=== PATIENT | female | born 1975 | race Caucasian/White ===

== ENCOUNTER 2020-04-08 16:50 | Inpatient (IN) ==
[2020-04-08] MEDS ORDERED: HYDROmorphone 0.5 MG/0.5 ML SYRINGE IV PRN (17:07)
[2020-04-08] MEDS ORDERED: LACTATED RINGERS 1,000 ML IV ONE (17:07)
[2020-04-08] MEDS ORDERED: ONDANSETRON 4 MG/2 ML VIAL IV ONE (17:07)
--- NOTE | 2020-04-08 17:21 | Emergency Department Note ---
Female Urogenital HPI General Chief complaint: Flank Pain Stated complaint: flank pain, n/v Time Seen by Provider: 04/08/20 17:04 Source: patient and RN notes reviewed Mode of arrival: wheelchair Limitations: no limitations History of Present Illness HPI Narrative: Narrative: This patient comes in with right flank pain abdominal pain fever nausea and vomiting. She had a CT scan yesterday that showed for kidney stones on the right side with severe hydronephrosis. She did see Dr. Wesley the urologist on . Sounds like she has had some problems with kidney stones cystocele rectocele, stress incontinence and urinary tract infections. She says she is taken antibiotics twice in the last couple of months. Onset (ago): day(s) Radiation: R flank Severity: moderate Quality: sharp Duration: constant Improves with: none Worsens with: none Associated symptoms: Reports nausea/vomiting and fever/chills Related Data Home Medications Medication Instructions Recorded Confirmed IUD INTRAUTERINE 03/12/20 04/05/20 Allergies Allergy/AdvReac Type Severity Reaction Status Date / Time Iodinated Diagnostic Agents Allergy Unknown Vomiting Uncoded 04/05/20 13:17 Review of Systems ROS ROS Narrative: Narrative: All systems ED: reviewed and negative except as stated. Constitutional: Reports fever and chills Cardiovascular: Denies chest pain Respiratory: Denies shortness of breath and cough Gastrointestinal: Reports abdominal pain, nausea and vomiting; Denies diarrhea PFSH Narrative Patient History Narrative: Narrative: Medical/Surgical/Family History All Active Problems (Updated 04/08/20 @ 22:23 by Yusuf Wesley MD) Sepsis (Acute) Ureteral stone with hydronephrosis (Acute) Urinary tract infection (Acute) Urge incontinence (Acute) Stress incontinence (Acute) Rectocele (Acute) Cystocele (Acute) Ureteral stone (Acute) Status post laser lithotripsy of ureteral calculus (Chronic 04/05/19) History of surgery (Chronic 04/12/19) History of surgery (Chronic ~05/2002) History of ectopic (Chronic ~05/2002) Heart murmur (Chronic) Prolapse of vaginal wall (Chronic) Mild depression (Chronic) 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) Cystitis, acute (Chronic) Lumbago (Chronic) Morbid obesity due to excess calories (Chronic) Kidney stone (Chronic) History of kidney stones (Acute) Urinary tract infection (Acute) Urinary frequency (Acute) Medical History 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) Cystitis, acute (Chronic) Exudative pharyngitis (Chronic) Heart murmur (Chronic) History of ectopic (Chronic ~05/2002) History of kidney stones (Acute) Kidney stone (Chronic) Lumbago (Chronic) Mild depression (Chronic) Morbid obesity due to excess calories (Chronic) Prolapse of vaginal wall (Chronic) Urinary tract infection (Acute) Surgical History History of surgery (Chronic ~05/2002) Ectopic History of surgery (Chronic 04/12/19) Left-sided percutaneous nephrolithotomy Status post laser lithotripsy of ureteral calculus (Chronic 04/05/19) Family History Mother Heart disease Social History Smoking Status: Never smoker Alcohol Intake Frequency: holiday/special occasion only Substance Use: does not use Exam Narrative Narrative: Narrative: General Limitations: no limitations Head Head: atraumatic, normocephalic and normal inspection Eye Eye: Present normal appearance and EOMI; Absent scleral icterus and conjunctival injection ENT ENT: Present normal exam, normal oropharynx and mucous membranes moist Neck Neck: Present normal inspection and full ROM Chest Chest: Present normal inspection and symmetric chest wall rise Respiratory Respiratory: Present normal lung sounds bilaterally; Absent respiratory distress, rales/crackles and wheezes Cardiovascular Cardiovascular: Present regular rate, normal rhythm and normal heart sounds Adbominal Abdominal: Present soft and tenderness; Absent distention, guarding, rebound and rigidity Expanded Abdominal Abdominal Tenderness: Present RUQ and RLQ Back Back: Present CVA tenderness (R) Neurological Neurological: Present alert Psychiatric Psychiatric: Present normal affect Skin Skin: Present warm and dry; Absent diaphoresis Course Vital Signs Vital signs: Vital Signs Temperature 102.3 F H 04/08/20 16:50 Pulse Rate 96 H 04/08/20 16:50 Respiratory Rate 22 04/08/20 16:50 Blood Pressure 140/87 04/08/20 16:50 Pulse Oximetry (%) 97 04/08/20 16:50 Temperature 98.5 F 04/09/20 04:01 Pulse Rate 60 04/09/20 05:01 Respiratory Rate 20 04/09/20 05:01 Blood Pressure 113/63 04/09/20 05:01 Pulse Oximetry (%) 96 04/09/20 05:01 MDM MDM Narrative Medical decision making narrative: Narrative: Patient was cultured and treated with Rocephin and ampicillin. I discussed case with Dr. Wesley and she will take the patient to the operating room for a stent. Medical Records Medical records reviewed: Yes I reviewed the patient's medical records. Medical records narrative: CT scan done yesterday does show for distal ureteral stones on the right the largest 6 mm. Lab Data Lab results reviewed: Yes I reviewed the patient's lab results. Lab results narrative: Patient appears to have a UTI and her white count was 1 4.2 Result diagrams: 04/09/20 04:28 04/09/20 04:28 Labs: Lab Results 04/08/20 04/08/20 04/08/20 Range/Units 17:04 17:04 17:04 WBC 14.2 H (4.50-11.00) K/mcL RBC 4.45 (3.59-5.38) M/mcL Hgb 13.7 (11.2-15.7) g/dL Hct 40.3 (34.1-44.9) % MCV 90.6 (80.0-100.0) fL MCH 30.8 (26.0-34.0) pg MCHC 34.0 (31.0-36.0) g/dL RDW 12.8 (11.5-14.5) % Plt Count 153 (140-440) K/mcL MPV 11.4 H (7.4-10.4) fL Gran % 91.2 H (38.0-78.0) % Lymph % (Auto) 5.1 L (15.5-49.0) % [place] % (Auto) 3.6 (1.0-12.0) % Eos % (Auto) 0 (0.0-7.0) % Baso % (Auto) 0.1 (0.0-2.0) % Gran # 12.93 H (1.80-8.00) K/mcL Lymph # (Auto) 0.73 L (1.50-4.80) K/mcL [place] # (Auto) 0.51 (0.10-0.90) K/mcL Eos # (Auto) 0 (0.00-0.70) K/mcL Baso # (Auto) 0.01 (0.00-0.30) K/mcL VBG Lactic Acid 1.7 (0.5-2.0) mmol/L Sodium 130 L (133-145) mmol/L Potassium 4.0 (3.3-5.1) mmol/L Chloride 98 (96-108) mmol/L Carbon Dioxide 20 L (22-30) mmol/L Anion Gap 12.0 (8-16) BUN 20 (6-20) mg/dl Creatinine 1.4 H (0.6-1.1) mg/dl GFR Calculation 45 Glucose 137 H (70-105) mg/dL Calcium 9.2 (8.6-10.4) mg/dl Total Bilirubin 0.6 (0.0-1.0) mg/dL AST 15 (0-37) U/l ALT 14 (0-40) U/l Alkaline Phosphatase 61 (39-117) U/L Total Protein 6.7 (5.9-8.4) gm/dL Albumin 3.7 (3.2-5.2) gm/dL Globulin 3.0 (2.2-3.7) gm/dL Albumin/Globulin Ratio 1.2 (1.0-2.3) Urine Color Urine Appearance Urine pH (5.0-9.0) Ur Specific [place] (1.000-1.035) Urine Protein (NEG) mg/dL Urine Glucose (UA) (NEG) mg/dL Urine Ketones (NEG) mg/dL Urine Occult Blood (<0.03) mg/dL Urine Nitrate (NEG) Urine Bilirubin (NEG) mg/dL Urine Urobilinogen (NEG) mg/dL Ur Leukocyte Esterase (NEG) /uL Urine RBC (0-1) /hpf Urine WBC (0-4) /hpf Ur Squamous Epith Cells (0-4) /hpf Urine Bacteria (0) /hpf Urine Mucus (0) /hpf Ur Culture Indicated? SARS-CoV-2 (PCR) (NEGATIVE) 04/08/20 04/08/20 Range/Units 17:20 19:31 WBC (4.50-11.00) K/mcL RBC (3.59-5.38) M/mcL Hgb (11.2-15.7) g/dL Hct (34.1-44.9) % MCV (80.0-100.0) fL MCH (26.0-34.0) pg MCHC (31.0-36.0) g/dL RDW (11.5-14.5) % Plt Count (140-440) K/mcL MPV (7.4-10.4) fL Gran % (38.0-78.0) % Lymph % (Auto) (15.5-49.0) % [place] % (Auto) (1.0-12.0) % Eos % (Auto) (0.0-7.0) % Baso % (Auto) (0.0-2.0) % Gran # (1.80-8.00) K/mcL Lymph # (Auto) (1.50-4.80) K/mcL [place] # (Auto) (0.10-0.90) K/mcL Eos # (Auto) (0.00-0.70) K/mcL Baso # (Auto) (0.00-0.30) K/mcL VBG Lactic Acid (0.5-2.0) mmol/L Sodium (133-145) mmol/L Potassium (3.3-5.1) mmol/L Chloride (96-108) mmol/L Carbon Dioxide (22-30) mmol/L Anion Gap (8-16) BUN (6-20) mg/dl Creatinine (0.6-1.1) mg/dl GFR Calculation Glucose (70-105) mg/dL Calcium (8.6-10.4) mg/dl Total Bilirubin (0.0-1.0) mg/dL AST (0-37) U/l ALT (0-40) U/l Alkaline Phosphatase (39-117) U/L Total Protein (5.9-8.4) gm/dL Albumin (3.2-5.2) gm/dL Globulin (2.2-3.7) gm/dL Albumin/Globulin Ratio (1.0-2.3) Urine Color Yellow Urine Appearance Clear Urine pH 5.0 (5.0-9.0) Ur Specific [place] 1.026 (1.000-1.035) Urine Protein 30 A (NEG) mg/dL Urine Glucose (UA) Negative (NEG) mg/dL Urine Ketones Neg (NEG) mg/dL Urine Occult Blood 0.03 A (<0.03) mg/dL Urine Nitrate Neg (NEG) Urine Bilirubin Neg (NEG) mg/dL Urine Urobilinogen 2.0 A (NEG) mg/dL Ur Leukocyte Esterase 75 A (NEG) /uL Urine RBC 6 H (0-1) /hpf Urine WBC 43 H (0-4) /hpf Ur Squamous Epith Cells 6 H (0-4) /hpf Urine Bacteria 0 (0) /hpf Urine Mucus Few (0) /hpf Ur Culture Indicated? No SARS-CoV-2 (PCR) Covid-19 negative (NEGATIVE) Discharge Plan Patient/Caregiver Discharge Instructions Pt seen by [facility]ENER TENDER/PA only: No Clinical Impression: Calculus in urethra Urinary tract infection Qualifiers: Urinary tract infection type: acute pyelonephritis Qualified Code(s): N10 - Acute pyelonephritis Patient Disposition: Xfer As Inpt ([facility]) Discharge Date/Time: 04/08/20 19:23
[2020-04-08] MEDS ORDERED: cefTRIAXone 1 GM VIAL IV ONE ×2 (17:23→22:07)
[2020-04-08 17:45] LABS: Basophils # (Auto) 0.01 K/mcL (0.00-0.30); Basophils % (Auto) 0.1 % (0.0-2.0); Eosinophils # (Auto) 0 K/mcL (0.00-0.70); Eosinophils % (Auto) 0 % (0.0-7.0); Granulocytes % (Auto) 91.2 % (38.0-78.0); Hematocrit 40.3 % (34.1-44.9); Hemoglobin 13.7 g/dL (11.2-15.7); Lymphocytes # (Auto) 0.73 K/mcL (1.50-4.80); Lymphocytes % (Auto) 5.1 % (15.5-49.0); Mean Cell Volume 90.6 fL (80.0-100.0); Mean Platelet Volume 11.4 fL (7.4-10.4); Monocytes # (Auto) 0.51 K/mcL (0.10-0.90); Monocytes % (Auto) 3.6 % (1.0-12.0); Platelet Count 153 K/mcL (140-440); RBC 4.45 M/mcL (3.59-5.38); Red Cell Distribution Width 12.8 % (11.5-14.5); WBC 14.2 K/mcL (4.50-11.00)
[2020-04-08 17:45] LABS: Appearance,Urine CLEAR; Bacteria,Urine 0 /hpf (0); Bilirubin,Urine NEG (NEG); Color,Urine YELLOW; Culture Indicated,Urine NO; Glucose,Urine (UA) NEGATIVE (NEG); Ketones,Urine NEG (NEG); Leukocyte Esterase,Urine 75 /uL (NEG); Mucus,Urine FEW /hpf (0); Nitrate,Urine NEG (NEG); Protein,Urine 30 mg/dL (NEG); Specific Gravity,Urine 1.026 (1.000-1.035); Urine Blood 0.03 mg/dL (<0.03); Urine RBC 6 /hpf (0-1); Urine Squamous Epithelial Cell 6 /hpf (0-4); Urine WBC 43 /hpf (0-4)
[2020-04-08 18:05] LABS: ALT/SGPT 14 U/l (0-40); AST/SGOT 15 U/l (0-37); Albumin 3.7 gm/dL (3.2-5.2); Albumin/Globulin Ratio 1.2 (1.0-2.3); Alkaline Phosphatase 61 U/L (39-117); Bilirubin,Total 0.6 mg/dL (0.0-1.0); Blood Urea Nitrogen 20 mg/dl (6-20); Calcium 9.2 mg/dl (8.6-10.4); Carbon Dioxide 20 mmol/L (22-30); Chloride 98 mmol/L (96-108); Glomerular Filtration Rate 45; Glucose 137 mg/dL (70-105)
[2020-04-08] MEDS ORDERED: AMPICILLIN SODIUM 1 GM in 0.9 % SODIUM CHLORIDE 50 ML IV ONE (18:33)
--- NOTE | 2020-04-08 18:53 | XRay Report ---
CLINICAL INFORMATION: Preop COMPARISON: None. TECHNIQUE: Portable FINDINGS: The heart size, mediastinum and pulmonary vessels are unremarkable. The lungs are clear. There are no effusions. The bones and soft tissues are within normal limits. IMPRESSION: Normal chest. Interpreted and Authenticated by: Heber Plummer 04/08/20
[2020-04-08] MEDS ORDERED: VANCOMYCIN 1,000 MG in 0.9 % SODIUM CHLORIDE 250 ML IV ONE ×2 (19:40→19:41)
--- NOTE | 2020-04-08 19:50 | Internal Medicine Consult Note ---
HPI Data of Consult Primary Care Provider: Tisha Ralph Consult Narrative History of present illness: 45 y.o. female with longstanding right sided ureteral stone who established care this week. previous CT scan was form early this year and she was never treated. she has mild prolapse and thought her symptoms were from such, not her distal stone. Repeat Ct scan was ordered and plan was for surgery next week. she got her CT scan yesterday and started to have increased pain, malaise, fevers today that have progressively worsened until she was seen in the ER> CT Stone yesterday: There are four stones in the distal right ureter. The largest, most distal stone near the UVJ, is 6 mm in short axis. The obstructing stones have resulted in severe right hydroureter/hydronephrosis. Both kidneys demonstrate extensive nephrocalcinosis. There are also a few nonobstructing stones in the calyces of both kidneys: 7 mm inferior calyx left kidney, 5 mm mid calyx left kidney, 3 mm posterior mid calyx left kidney, 3 mm posterior mid calyx left kidney and two in the superior calyx left kidney both less than 2 mm. In the right upper collecting system, 2 mm inferior calyx, 2 mm mid calyx and 2 mm the posterior calyces. In the ER she was found to be febrile, have an elevated WBC and lactic acid meeting sepsis criteria. EMERGENT intervention by [id number] for right ureteral stent, possible ureteroscopy and laser lithotripsy with possible right percutaenous nephrostomy tube placement (if unable to gain access with a ureteral stent and she would need to be transferred to a facility with interventional radiology). No dysuria, no hematuria, she feels febrile and has had multiple episodes emesis. Right flank pain radiating to groin that is worse than this morning. cc:: CC: Yusuf Wesley MD Constitutional Constitutional: Present chills, excessive sweating, fatigue, fever(s), malaise and weakness EENT Eyes: Absent blurry vision, decreased night vision and pain Nose, mouth and throat: Absent change in voice, dysphagia and lip swelling Cardiovascular Cardiovascular: Present diaphoresis; Absent chest pain at rest and chest pain with activity Respiratory Respiratory: Absent cough, dyspnea on exertion, wheezing and stridor Gastrointestinal Gastrointestinal: Present as per HPI, nausea and vomiting Genitourinary Genitourinary: Present as per HPI Musculoskeletal Musculoskeletal: Absent joint swelling, muscle weakness and myalgias Integumentary Integumentary: Absent rash, sores and unusual bruising Neurological Neurological: Present weakness; Absent confusion, dizziness and tingling Psychiatric Psychiatric: Present change in appetite; Absent anxiety, irritability and memory loss Endocrine Endocrine: Absent polydipsia, polyphagia and polyuria Hematologic/Lymphatic Hematologic/Lymphatic: Absent easy bleeding, easy bruising and lymphadenopathy Allergic/Immunologic Allergic/Immunologic: Absent tongue swelling, uticaria and lip swelling PFSH PFSH All Active Problems (Updated 04/08/20 @ 20:02 by Yusuf Wesley MD) Sepsis (Acute) Ureteral stone with hydronephrosis (Acute) Urinary tract infection (Acute) Urge incontinence (Acute) Stress incontinence (Acute) Rectocele (Acute) Cystocele (Acute) Ureteral stone (Acute) Status post laser lithotripsy of ureteral calculus (Chronic 04/05/19) History of surgery (Chronic 04/12/19) History of surgery (Chronic ~05/2002) History of ectopic (Chronic ~05/2002) Heart murmur (Chronic) Prolapse of vaginal wall (Chronic) Mild depression (Chronic) 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) Cystitis, acute (Chronic) Lumbago (Chronic) Morbid obesity due to excess calories (Chronic) Kidney stone (Chronic) History of kidney stones (Acute) Urinary tract infection (Acute) Urinary frequency (Acute) Medical History 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) Cystitis, acute (Chronic) Exudative pharyngitis (Chronic) Heart murmur (Chronic) History of ectopic (Chronic ~05/2002) History of kidney stones (Acute) Kidney stone (Chronic) Lumbago (Chronic) Mild depression (Chronic) Morbid obesity due to excess calories (Chronic) Prolapse of vaginal wall (Chronic) Urinary tract infection (Acute) Surgical History History of surgery (Chronic ~05/2002) Ectopic History of surgery (Chronic 04/12/19) Left-sided percutaneous nephrolithotomy Status post laser lithotripsy of ureteral calculus (Chronic 04/05/19) Family History Mother Heart disease Social History marital status: single occupational status: employed physical activity: none smoking status: Never smoker alcohol intake frequency: holiday/special occasion only substance use type: does not use MEDS/ALLERGIES Home Medications and Allergies Home Medications Medication Instructions Recorded Confirmed Type IUD INTRAUTERINE 03/12/20 04/05/20 History Allergies Allergy/AdvReac Type Severity Reaction Status Date / Time Iodinated Diagnostic Agents Allergy Unknown Vomiting Uncoded 04/05/20 13:17 EXAM Constitutional Vitals: Temp Pulse Resp BP Pulse Ox 100.3 F H 96 H 22 140/87 97 04/08/20 19:25 04/08/20 16:50 04/08/20 16:50 04/08/20 16:50 04/08/20 16:50 General appearance: average body habitus, cooperative and severe distress Exam: diaphoretic Head Head exam: Present atraumatic, normal inspection and normocephalic Eye Eye exam: Present EOMI; Absent conjunctival injection, periorbital swelling and scleral icterus ENT ENT exam: Present mucous membranes dry Respiratory Respiratory exam: Present normal respiratory exam; Absent accessory muscle use, stridor and wheezes Cardiovascular Cardiovascular exam: Present tachycardia; Absent bradycardia and irregular rhythm GI/Abdominal GI/Abdominal exam: Present soft; Absent firm, rebound and tenderness Additional comments: right CVA tenderness Additional comments: right CVA tenderness Neurological Exam Neurological exam: Present alert and oriented X3 Psychiatric Psychiatric exam: Present normal affect; Absent agitated and anxious Skin Skin exam: Present diaphoretic and warm; Absent rash DATA Data Completed and Pending Labs: Labs from last 24 hours 04/08/20 04/08/20 04/08/20 19:31 17:20 17:04 WBC RBC Hgb Hct MCV MCH MCHC RDW Plt Count MPV Gran % Lymph % (Auto) [place] % (Auto) Eos % (Auto) Baso % (Auto) Gran # Lymph # (Auto) [place] # (Auto) Eos # (Auto) Baso # (Auto) VBG Lactic Acid 1.7 Sodium Potassium Chloride Carbon Dioxide Anion Gap BUN Creatinine GFR Calculation Glucose Calcium Total Bilirubin AST ALT Alkaline Phosphatase Total Protein Albumin Globulin Albumin/Globulin Ratio Urine Color Yellow Urine Appearance Clear Urine pH 5.0 Ur Specific [place] 1.026 Urine Protein 30 A Urine Glucose (UA) Negative Urine Ketones Neg Urine Occult Blood 0.03 A Urine Nitrate Neg Urine Bilirubin Neg Urine Urobilinogen 2.0 A Ur Leukocyte Esterase 75 A Urine RBC 6 H Urine WBC 43 H Ur Squamous Epith Cells 6 H Urine Bacteria 0 Urine Mucus Few Ur Culture Indicated? No SARS-CoV-2 (PCR) Pending 04/08/20 04/08/20 17:04 17:04 WBC 14.2 H RBC 4.45 Hgb 13.7 Hct 40.3 MCV 90.6 MCH 30.8 MCHC 34.0 RDW 12.8 Plt Count 153 MPV 11.4 H Gran % 91.2 H Lymph % (Auto) 5.1 L [place] % (Auto) 3.6 Eos % (Auto) 0 Baso % (Auto) 0.1 Gran # 12.93 H Lymph # (Auto) 0.73 L [place] # (Auto) 0.51 Eos # (Auto) 0 Baso # (Auto) 0.01 VBG Lactic Acid Sodium 130 L Potassium 4.0 Chloride 98 Carbon Dioxide 20 L Anion Gap 12.0 BUN 20 Creatinine 1.4 H GFR Calculation 45 Glucose 137 H Calcium 9.2 Total Bilirubin 0.6 AST 15 ALT 14 Alkaline Phosphatase 61 Total Protein 6.7 Albumin 3.7 Globulin 3.0 Albumin/Globulin Ratio 1.2 Urine Color Urine Appearance Urine pH Ur Specific [place] Urine Protein Urine Glucose (UA) Urine Ketones Urine Occult Blood Urine Nitrate Urine Bilirubin Urine Urobilinogen Ur Leukocyte Esterase Urine RBC Urine WBC Ur Squamous Epith Cells Urine Bacteria Urine Mucus Ur Culture Indicated? SARS-CoV-2 (PCR) A/P Assessment and plan (1) Ureteral stone with hydronephrosis: Status: Acute Comment: -she has FOUR stones in her distal right ureter, hydronephrosis and signs of sepsis \ -emergent intervention with right ureteral stent and possible ureteroscopy and laser lithotripsy if needed to gain access -if we are unable to place a retrograde ureteral stent, she will need emergent transfer to a facility with interventional radiology for a right nephrostomy tube -definative management of her stone burden will be undertaken after her infection has cleared -risks, benefits, severity of her infection and alternatives gone over with her in depth and informed consent obtained (2) Sepsis: Status: Acute Comment: -she has FOUR stones in her distal right ureter, hydronephrosis and signs of sepsis \ -emergent intervention with right ureteral stent and possible ureteroscopy and laser lithotripsy if needed to gain access -if we are unable to place a retrograde ureteral stent, she will need emergent transfer to a facility with interventional radiology for a right nephrostomy tube -broad spectrum antibiotics given and resusitation by ER and anesthesia -plan to admit to ICU after and hospitalist service Time Spent With Patient Time: Total time spent is greater than 50% in coordination of care (as documented) at patient's floor/unit and/or counseling patient:
[2020-04-08] MEDS ORDERED: MIDAZOLAM 2 MG/2 ML VIAL ONE (19:53)
[2020-04-08] MEDS ORDERED: GLYCOPYRROLATE 0.2 MG/ML VIAL IV ONE (19:53)
[2020-04-08] MEDS ORDERED: KETAMINE 100 MG/ML ML ONE (19:53)
[2020-04-08] MEDS ORDERED: LIDOCAINE HCL/PF 100 MG/5 ML SYRINGE IV ONE (19:53)
[2020-04-08] MEDS ORDERED: ONDANSETRON 4 MG/2 ML VIAL ONE (19:53)
[2020-04-08] MEDS ORDERED: PROPOFOL 200 MG/20 ML VIAL IV ONE (19:53)
[2020-04-08] MEDS ORDERED: DEXAMETHASONE 10 MG/ML VIAL ONE (19:53)
[2020-04-08] MEDS ORDERED: fentaNYL 100 MCG/2 ML VIAL IV ONE (19:53)
[2020-04-08] MEDS ORDERED: ONDANSETRON 4 MG/2 ML VIAL IV PRN ×2 (20:21→21:49)
[2020-04-08] MEDS ORDERED: IPRATROPIUM/ALBUTEROL 3 ML AMPUL.NEB NEB PRN (20:21)
[2020-04-08] MEDS ORDERED: ACETAMINOPHEN 1,000 MG/100 ML BOTTLE IV ONE ×2 (20:21→20:52)
[2020-04-08] MEDS ORDERED: MEPERIDINE 25 MG/ML SYRINGE IV PRN (20:21)
[2020-04-08] MEDS ORDERED: BENZOCAINE/MENTHOL 1 LOZENGE PO PRN (20:21)
[2020-04-08] MEDS ORDERED: METHOCARBAMOL 1,000 MG/10 ML VIAL IV PRN (20:21)
[2020-04-08] MEDS ORDERED: fentaNYL 100 MCG/2 ML VIAL IV PRN (20:21)
[2020-04-08] MEDS ORDERED: KETOROLAC 30 MG/ML VIAL IV PRN (20:21)
[2020-04-08] MEDS ORDERED: LACTATED RINGERS 1,000 ML IV SCH (20:30)
--- NOTE | 2020-04-08 20:41 | Internal Med History&Physical ---
HPI History of Present Illness Patient information: Note initiated : 04/08/20 at 8:40 pm Service Date, if different from initiated Date: [] Patient: Sheila Ohara a 45 y/o F admitted on for flank pain, n/v. Chief Complaint: [] History of present illness: Ms. Ohara is a 45 year old F with a history of nephrolithiasis following up as outpatient with urology. Patient started experiencing increasing abdominal discomfort along with fever, nausea and hematuria and subsequently was evaluated in the ER. Patient was taken to surgery for hydronephrosis and obstructive uropathy along with placement of right ureteral stent. Hospital service was consulted for admission in light of sepsis/obstructive uropathy and VICTOR HUGO At the time of my evaluation patient is immediately postop. She is doing well. Discomfort improved. Resting comfortably. Patient denies headache, photophobia, myalgias but endorses to chills and fever. She also endorses abdominal discomfort along with vaginal spasm likely associated with ureteric colic. Review of systems 10 point review system was performed and is negative except for ones cussed above PFSH PFSH All Active Problems (Updated 04/08/20 @ 22:23 by Yusuf Wesley MD) Sepsis (Acute) Ureteral stone with hydronephrosis (Acute) Urinary tract infection (Acute) Urge incontinence (Acute) Stress incontinence (Acute) Rectocele (Acute) Cystocele (Acute) Ureteral stone (Acute) Status post laser lithotripsy of ureteral calculus (Chronic 04/05/19) History of surgery (Chronic 04/12/19) History of surgery (Chronic ~05/2002) History of ectopic (Chronic ~05/2002) Heart murmur (Chronic) Prolapse of vaginal wall (Chronic) Mild depression (Chronic) 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) Cystitis, acute (Chronic) Lumbago (Chronic) Morbid obesity due to excess calories (Chronic) Kidney stone (Chronic) History of kidney stones (Acute) Urinary tract infection (Acute) Urinary frequency (Acute) Medical History 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) Cystitis, acute (Chronic) Exudative pharyngitis (Chronic) Heart murmur (Chronic) History of ectopic (Chronic ~05/2002) History of kidney stones (Acute) Kidney stone (Chronic) Lumbago (Chronic) Mild depression (Chronic) Morbid obesity due to excess calories (Chronic) Prolapse of vaginal wall (Chronic) Urinary tract infection (Acute) Surgical History History of surgery (Chronic ~05/2002) Ectopic History of surgery (Chronic 04/12/19) Left-sided percutaneous nephrolithotomy Status post laser lithotripsy of ureteral calculus (Chronic 04/05/19) Family History Mother Heart disease Social History marital status: single occupational status: employed physical activity: none smoking status: Never smoker alcohol intake frequency: holiday/special occasion only substance use type: does not use MEDS/ALLERGIES Home Medications and Allergies Home Medications Medication Instructions Recorded Confirmed Type IUD INTRAUTERINE 03/12/20 04/05/20 History Allergies Allergy/AdvReac Type Severity Reaction Status Date / Time Iodinated Diagnostic Agents Allergy Unknown Vomiting Uncoded 04/05/20 13:17 EXAM Constitutional Vitals: Temp Pulse Resp BP Pulse Ox 100.0 F H 104 H 22 115/91 100 04/08/20 20:30 04/08/20 20:35 04/08/20 20:35 04/08/20 20:35 04/08/20 20:35 Anxious and in discomfort Head normocephalic Oral cavity moist No ear nose discharge Eye movement symmetrical Neck supple no lymphadenopathy S1-S2 tachycardia Nonlabored breathing Nondistended nontender abdomen Lower extremity no cyanosis clubbing or joint swelling Skin no suspicious lesion Psych anxious but alert cooperative Neuro normal higher function DATA Data Completed and Pending Labs: Labs from last 24 hours 04/08/20 04/08/20 04/08/20 19:31 17:20 17:04 WBC RBC Hgb Hct MCV MCH MCHC RDW Plt Count MPV Gran % Lymph % (Auto) [place] % (Auto) Eos % (Auto) Baso % (Auto) Gran # Lymph # (Auto) [place] # (Auto) Eos # (Auto) Baso # (Auto) VBG Lactic Acid 1.7 Sodium Potassium Chloride Carbon Dioxide Anion Gap BUN Creatinine GFR Calculation Glucose Calcium Total Bilirubin AST ALT Alkaline Phosphatase Total Protein Albumin Globulin Albumin/Globulin Ratio Urine Color Yellow Urine Appearance Clear Urine pH 5.0 Ur Specific [place] 1.026 Urine Protein 30 A Urine Glucose (UA) Negative Urine Ketones Neg Urine Occult Blood 0.03 A Urine Nitrate Neg Urine Bilirubin Neg Urine Urobilinogen 2.0 A Ur Leukocyte Esterase 75 A Urine RBC 6 H Urine WBC 43 H Ur Squamous Epith Cells 6 H Urine Bacteria 0 Urine Mucus Few Ur Culture Indicated? No SARS-CoV-2 (PCR) Pending 04/08/20 04/08/20 17:04 17:04 WBC 14.2 H RBC 4.45 Hgb 13.7 Hct 40.3 MCV 90.6 MCH 30.8 MCHC 34.0 RDW 12.8 Plt Count 153 MPV 11.4 H Gran % 91.2 H Lymph % (Auto) 5.1 L [place] % (Auto) 3.6 Eos % (Auto) 0 Baso % (Auto) 0.1 Gran # 12.93 H Lymph # (Auto) 0.73 L [place] # (Auto) 0.51 Eos # (Auto) 0 Baso # (Auto) 0.01 VBG Lactic Acid Sodium 130 L Potassium 4.0 Chloride 98 Carbon Dioxide 20 L Anion Gap 12.0 BUN 20 Creatinine 1.4 H GFR Calculation 45 Glucose 137 H Calcium 9.2 Total Bilirubin 0.6 AST 15 ALT 14 Alkaline Phosphatase 61 Total Protein 6.7 Albumin 3.7 Globulin 3.0 Albumin/Globulin Ratio 1.2 Urine Color Urine Appearance Urine pH Ur Specific [place] Urine Protein Urine Glucose (UA) Urine Ketones Urine Occult Blood Urine Nitrate Urine Bilirubin Urine Urobilinogen Ur Leukocyte Esterase Urine RBC Urine WBC Ur Squamous Epith Cells Urine Bacteria Urine Mucus Ur Culture Indicated? SARS-CoV-2 (PCR) A/P Narrative A/P Narrative: * Nephrolithiasis with obstructive uropathy and hydronephrosis-status post stenting. * Sepsis secondary to obstructive uropathy-on antibiotic coverage. Await cultures. * Acute kidney injury secondary to obstructive uropathy-continue monitor renal function. Creatinine 1.4. * Abdominal pain start as needed Tylenol/opioids * Full code * Prophylax Heparin Plan * Inpatient admission * Monitor renal function * De-escalate antibiotics based on culture sensitivities * Sepsis management per guidelines Time Spent With Patient Time: Total time spent is greater than 50% in coordination of care (as documented) at patient's floor/unit and/or counseling patient:
--- NOTE | 2020-04-08 20:46 | Brief Operative Note ---
Brief Operative Note Date of procedure: 04/08/20 Pre-op diagnosis: right obstructing multiple ureteral stones with infection & hydronephrosis Post-op diagnosis: same Procedure: right ureteral stent placement with right retrograde pyelogram Anesthesia: GETA Findings: purulent drainage down stent with hydronephrotic drip Surgeon: Yusuf Wesley Specimens Removed/Pathology: other (urine culture ) Condition: stable Disposition: ICU
[2020-04-08] MEDS ORDERED: IOHEXOL 300 10 ML VIAL IJ ONE (20:48)
--- NOTE | 2020-04-08 20:53 | Operative Note ---
Operative Note Operative Note: Date of procedure: 04/08/20 Pre-op diagnosis: right obstructing multiple ureteral stones with infection & hy dronephrosis Post-op diagnosis: same Procedure: right ureteral stent placement with right retrograde pyelogram Anesthesia: GETA Findings: purulent drainage down stent with hydronephrotic drip Surgeon: Yusuf Wesley Specimens Removed/Pathology: other (urine culture ) Condition: stable Disposition: ICU Informed consent was obtained and preoperative antibiotics were given. Patient was taken to the operative suite and placed on the table in the supine position. Adequate anesthesia was initiated. She was placed in the dorsolithotomy position and prepped and draped in usual sterile fashion. Her existing cystocele and hypermobile urethra made access challenging and did distort the anatomy of her trigone to some degree. We were able to manually reduce her prolapse in the order to gain the correct access to her right ureteral orifice. The right ureteral orifice was cannulated with a cone-tipped catheter and radiopaque contrast material was installed and there was seen to be massive hydroureter and we were unable to fill contrast to the renal pelvis. There is edema around the right ureteral orifice and a regular Glidewire was inserted and felt to hit against the obstructing distal stone. With gentle manipulation and some difficulty were able to manipulate the wire around all 4 of the ureteral stones and then it did easily transverse up to the renal pelvis under fluoroscopy and there was immediate jet of purulent urine with wire placement. Over the wire a 6 [place] 24 cm double-J ureteral stent was placed in the usual Seldinger fashion and seemed to coil adequately in the area of the renal pelvis under fluoroscopy and in the bladder under direct vision. Given her massively dilated ureter we do expect the coil of the stent to probably drift down into the ureteropelvic junction area. There was brisk drainage of purulent urine. A Hickey catheter was placed. And she was sent to the intensive care unit and admitted to the hospitalist service. Disposition We will plan for definitive stone treatment once her acute infectious process has resolved.
[2020-04-08] MEDS ORDERED: ONDANSETRON 4 MG ODT TABLET SL PRN (21:49)
[2020-04-08] MEDS ORDERED: ACETAMINOPHEN 325 MG TABLET PO PRN (21:49)
[2020-04-08] MEDS ORDERED: SENNOSIDES/DOCUSATE SODIUM 1 TAB TABLET PO SCH (21:49)
[2020-04-08] MEDS ORDERED: ACETAMINOPHEN 650 MG/65 ML BOTTLE IV PRN (21:49)
[2020-04-08] MEDS ORDERED: BISACODYL 10 MG SUPP.RECT PR PRN (21:49)
[2020-04-08] MEDS ORDERED: VANCOMYCIN PER PHARMACY IV SCH (21:49)
[2020-04-08] MEDS ORDERED: POLYETHYLENE GLYCOL 3350 17 GM PACKET PO PRN (21:49)
[2020-04-08] MEDS ORDERED: cefTRIAXone 2 GM in DEXTROSE 5% IN WATER 50 ML IV SCH (21:49)
[2020-04-08] MEDS ORDERED: MAGNESIUM SULFATE 2 GM/50 ML BAG IV PRN (21:49)
[2020-04-08] MEDS ORDERED: MELATONIN 3 MG TABLET PO PRN (21:49)
[2020-04-08] MEDS ORDERED: POTASSIUM CHLORIDE 20 MEQ PACKET PO PRN (21:49)
[2020-04-08] MEDS: 0.9 % SODIUM CHLORIDE 1,000 ML IV SCH (22:06)
[2020-04-08] MEDS: 0.9 % SODIUM CHLORIDE 10 ML SYRINGE IV SCH (22:06)
[2020-04-08] MEDS ORDERED: BENZOCAINE/MENTHOL 1 LOZENGE PO ONE (22:19)
[2020-04-08] MEDS ORDERED: cefTRIAXone 1 GM VIAL ONE (22:19)
[2020-04-08] MEDS: BENZOCAINE/MENTHOL 1 LOZENGE PO PRN (22:26)
[2020-04-08] MEDS: HEPARIN 5,000 UNIT/ML VIAL SQ SCH (22:29)
[2020-04-08] MEDS: DOCUSATE SODIUM 100 MG CAPSULE PO SCH (22:29)
[2020-04-08] MEDS ORDERED: HEPARIN 5,000 UNIT/ML VIAL ONE (22:34)
[2020-04-09] MEDS: 0.9 % SODIUM CHLORIDE 10 ML SYRINGE IV SCH ×3 (05:36→21:52)
[2020-04-09 06:38] LABS: Hematocrit 39.3 % (34.1-44.9); Hemoglobin 12.8 g/dL (11.2-15.7); Mean Cell Volume 94.2 fL (80.0-100.0); Mean Corpuscular HGB Conc 32.6 g/dL (31.0-36.0); Platelet Count 152 K/mcL (140-440); RBC 4.17 M/mcL (3.59-5.38); Red Cell Distribution Width 13.2 % (11.5-14.5)
[2020-04-09 06:54] LABS: ALT/SGPT 13 U/l (0-40); AST/SGOT 15 U/l (0-37); Albumin 3.1 gm/dL (3.2-5.2); Albumin/Globulin Ratio 1.1 (1.0-2.3); Alkaline Phosphatase 64 U/L (39-117); Bilirubin,Direct < 0.2 mg/dL (0.0-0.3); Bilirubin,Total 0.3 mg/dL (0.0-1.0); Blood Urea Nitrogen 16 mg/dl (6-20); Calcium 8.4 mg/dl (8.6-10.4); Carbon Dioxide 20 mmol/L (22-30); Chloride 105 mmol/L (96-108); Globulin 2.9 gm/dL (2.2-3.7); Glucose 159 mg/dL (70-105); Lactate Dehydrogenase 175 U/L (94-250); Phosphorous 2.7 mg/dL (2.7-4.5); Triglycerides 63 mg/dl (<150); Uric Acid 4.9 mg/dL (2.5-8.0)
[2020-04-09 06:55] LABS: Glomerular Filtration Rate 60
[2020-04-09] MEDS: BENZOCAINE/MENTHOL 1 LOZENGE PO PRN (07:53)
[2020-04-09] MEDS: 0.9 % SODIUM CHLORIDE 1,000 ML IV SCH ×4 (07:54→21:52)
--- NOTE | 2020-04-09 07:54 | XRay Report ---
HISTORY: FINDINGS: IMPRESSION: 0.5 minutes of fluoroscopy time was used Interpreted and Authenticated by: Carlos Awad 04/09/20
[2020-04-09] MEDS: DOCUSATE SODIUM 100 MG CAPSULE PO SCH ×2 (08:01→20:32)
[2020-04-09] MEDS: HEPARIN 5,000 UNIT/ML VIAL SQ SCH ×2 (08:02→20:31)
[2020-04-09] MEDS ORDERED: MULTIVIT,THER IRON,CA,FA & MIN 1 TABLET PO SCH (09:00)
[2020-04-09 09:22] LABS: Lymphocytes % 7 % (15-49); Monocytes % (Manual) 3 % (1-12); Platelet Estimate NORMAL (NORMAL); RBC Morphology NORMAL (NORMAL); Segmented Neutrophils % 90 % (38-78)
--- NOTE | 2020-04-09 09:30 | Internal Med Progress Note ---
SUBJECTIVE Subjective Patient information: Note initiated : 04/09/20 at 9:27 am Service Date, if different from initiated Date: [] Patient: Sheila Ohara a 45 y/o F admitted on 04/08/20 for flank pain, n/v. Chief Complaint: [] History of present illness: Ms. Ohara is a 45 year old F with a history of nephrolithiasis following up as outpatient with urology. Patient started experiencing increasing abdominal discomfort along with fever, nausea and hematuria and subsequently was evaluated in the ER. Patient was taken to surgery for hydronephrosis and obstructive uropathy along with placement of right ureteral stent. Hospital service was consulted for admission in light of sepsis/obstructive uropathy and VICTOR HUGO At the time of my evaluation patient is immediately postop. She is doing well. Discomfort improved. Resting comfortably. Patient denies headache, photophobia, myalgias but endorses to chills and fever. She also endorses abdominal discomfort along with vaginal spasm likely as sociated with ureteric colic. 04/09-patient doing well. No overnight events. No concerns per staff. Transition out of unit. White count down to 11 from 14.2. Creatinine improved 1.1 from 1.4. Remains afebrile. Stable hemodynamics and vitals. No hematuria. Hickey is draining clear urine. Will likely discharge in 24 hours. Urine and blood cultures negative so far. Urine culture from 04/05 Oligella urethralis. Continue Rocephin/vancomycin Constitutional Vitals: Vital Signs Temp Pulse Resp BP Pulse Ox 97.7 F 74 20 156/97 96 04/09/20 08:01 04/09/20 08:01 04/09/20 08:01 04/09/20 08:01 04/09/20 08:01 Period Temp Pulse Resp BP Sys/Ellis Pulse Ox Last 24 Hr 97.7 F-102.3 F 60-106 15-26 99-156/53-97 91-100 Intake and Output 04/08/20 04/09/20 04/09/20 21:59 05:59 13:59 Intake Total 1600 710 980 Output Total 125 2100 900 Balance 1475 -1390 80 Weight 125.69 kg alert oriented Nonlabored breathing Hickey draining clear urine No telemetry events Intake & Output: Intake & Output 04/08/20 04/09/20 04/09/20 21:59 05:59 13:59 Intake Total 1600 710 980 Output Total 125 2100 900 Balance 1475 -1390 80 Weight 125.69 kg Intake: IV 1000 350 980 Sodium Chloride 0.9% 1,000 ml @ 980 100 mls/hr IV .Q10H [facility] Rx#: [id number] Lactated Ringers 1,000 ml @ 1000 Wide Open IV BOLUS ONE Rx#: [id number] Vancomycin 1,000 mg In Sodium 250 Chloride 0.9% 250 ml @ 250 mls/ hr IV ONCE ONE Rx#:[id number] Oral 360 IV - Manual Only 600 Output: Urine Catheter Amount 125 2100 900 Other: Meal snack (Jello) Feeding Ability Independent Urine Appearance Clear Clear Uretheral (Hickey) Cloudy Clear Urine Color [place] Bright Yellow Bright Yellow Uretheral (Hickey) Dark Yellow Pale Urine Odor Normal Uretheral (Hickey) Normal OBJ DATA Labs CBC & Chem 7: 04/09/20 04:28 04/09/20 04:28 Labs: Abnormal Lab Results 04/09/20 04/09/20 04/08/20 04:28 04:28 17:20 WBC MPV 12.0 H Gran % Lymph % (Auto) Gran # Lymph # (Auto) Seg Neutrophils % 90 H Lymphocytes % 7 L Sodium Carbon Dioxide 20 L Creatinine Glucose 159 H Calcium 8.4 L Albumin 3.1 L Urine Protein 30 A Urine Occult Blood 0.03 A Urine Urobilinogen 2.0 A Ur Leukocyte Esterase 75 A Urine RBC 6 H Urine WBC 43 H Ur Squamous Epith Cells 6 H 04/08/20 04/08/20 17:04 17:04 WBC 14.2 H MPV 11.4 H Gran % 91.2 H Lymph % (Auto) 5.1 L Gran # 12.93 H Lymph # (Auto) 0.73 L Seg Neutrophils % Lymphocytes % Sodium 130 L Carbon Dioxide 20 L Creatinine 1.4 H Glucose 137 H Calcium Albumin Urine Protein Urine Occult Blood Urine Urobilinogen Ur Leukocyte Esterase Urine RBC Urine WBC Ur Squamous Epith Cells Meds: Medications Acetaminophen (Tylenol) 650 mg PO Q4-6HP PRN; Protocol PRN Reason: Per Pain Protocol/Fever > 101 Bisacodyl (Dulcolax) 10 mg [place] Q2-3DAYS PRN PRN Reason: Constipation Docusate Sodium (Colace) 100 mg PO BID [facility] Last Admin: 04/09/20 08:01 Dose: 100 mg Documented by: Heparin Sodium (Porcine) (Heparin) 5,000 unit SQ Q12 [facility] Last Admin: 04/09/20 08:02 Dose: 5,000 unit Documented by: Magnesium Sulfate (Magnesium Sulfate) 2 gm in 50 mls @ 50 mls/hr IV UD PRN PRN Reason: MG = or < 1.7 Ceftriaxone Sodium 2 gm/ (Dextrose) 50 mls @ 100 mls/hr IV Q24H [facility]; Protocol Last Admin: 04/08/20 22:10 Dose: Not Given Documented by: Sodium Chloride (Sodium Chloride 0.9%) 1,000 mls @ 100 mls/hr IV .Q10H [facility] Last Admin: 04/09/20 07:54 Dose: 100 mls/hr Documented by: Acetaminophen (Ofirmev) 650 mg in 65 mls @ 130 mls/hr IV Q6HP PRN; Protocol PRN Reason: Per Pain Protocol/Fever > 101 Vancomycin HCl 1,000 mg/ (Sodium Chloride) 250 mls @ 250 mls/hr IV Q12H [facility] Last Admin: 04/09/20 09:22 Dose: 250 mls/hr Documented by: Iron Carb/Multivit/[place]/Folic Acid (Multivitamin W/Minerals) 1 tab PO DAILY [facility] Last Admin: 04/09/20 08:01 Dose: 1 tab Documented by: Melatonin (Melatonin 3mg Tablet) 3 mg PO HSP PRN PRN Reason: Insomnia Ondansetron HCl (Zofran Odt) 4 mg SL Q4-6HP PRN; Protocol PRN Reason: Nausea And Vomiting Ondansetron HCl (Zofran) 4 mg IV Q4-6HP PRN; Protocol PRN Reason: Nausea And Vomiting Polyethylene Glycol (Miralax) 17 gm PO DAILYP PRN PRN Reason: Constipation Potassium Chloride (Klor-Con) 40 meq PO DAILYP PRN PRN Reason: K+ < 3.5 Senna/Docusate Sodium (Senna Plus Tablet) 1 tab PO HS [facility] Last Admin: 04/08/20 22:30 Dose: Not Given Documented by: Sodium Chloride (Saline Flush) 10 ml IV Q8 [facility] Last Admin: 04/09/20 05:36 Dose: Not Given Documented by: Throat Lozenges (Cepacol) 1 lozenge PO PRN PRN PRN Reason: Sore Throat Last Admin: 04/09/20 07:53 Dose: 1 lozenge Documented by: Vancomycin HCl (Vancomycin Per Pharmacy) 1 order IV UD [facility]; Protocol A/P Assessment and plan (1) Ureteral stone with hydronephrosis: Status: Acute (2) Sepsis: Status: Acute Narrative A/P Narrative: * Nephrolithiasis with obstructive uropathy and hydronephrosis-status post stenting. Clinical improvement noted. Managed by urology * Sepsis secondary to obstructive uropathy-on antibiotic coverage. Clinically improving. Cultures negative so far. White count downtrending to 11,000. * Acute kidney injury secondary to obstructive uropathy-clinically improving with creatinine down from 1.4-1.1. Continue monitoring. * Abdominal pain continue as needed Tylenol/opioids * Full code * Prophylax Heparin Plan * Transfer to medical floor * De-escalate antibiotics based on culture sensitivities * Nutrition support/therapies Time Spent With Patient Time: Total time spent is greater than 50% in coordination of care (as documented) at patient's floor/unit and/or counseling patient:
[2020-04-09] MEDS ORDERED: VANCOMYCIN 1,000 MG in 0.9 % SODIUM CHLORIDE 250 ML IV SCH (10:00)
[2020-04-09] MEDS ORDERED: ONDANSETRON 4 MG ODT TABLET SL PRN (11:10)
[2020-04-09] MEDS ORDERED: MAGNESIUM SULFATE 2 GM/50 ML BAG IV PRN (11:10)
[2020-04-09] MEDS ORDERED: ACETAMINOPHEN 325 MG TABLET PO PRN (11:10)
[2020-04-09] MEDS ORDERED: BISACODYL 10 MG SUPP.RECT PR PRN (11:10)
[2020-04-09] MEDS ORDERED: POLYETHYLENE GLYCOL 3350 17 GM PACKET PO PRN (11:10)
[2020-04-09] MEDS ORDERED: POTASSIUM CHLORIDE 20 MEQ PACKET PO PRN (11:10)
[2020-04-09] MEDS ORDERED: VANCOMYCIN PER PHARMACY IV SCH (11:10)
[2020-04-09] MEDS ORDERED: ACETAMINOPHEN 650 MG/65 ML BOTTLE IV PRN (11:10)
[2020-04-09] MEDS ORDERED: ONDANSETRON 4 MG/2 ML VIAL IV PRN (11:10)
[2020-04-09] MEDS ORDERED: BENZOCAINE/MENTHOL 1 LOZENGE PO PRN (11:10)
--- NOTE | 2020-04-09 11:23 | Internal Med Progress Note ---
SUBJECTIVE Subjective Patient information: Note initiated : 04/09/20 at 11:12 am Service Date, if different from initiated Date: [] Patient: Sheila Ohara 45 y/o F admitted on 04/08/20 for flank pain, n/v. Chief Complaint: [] Interval history: Patient did well overnight. She feels she is no longer febrile. Her pain has resolved. Some suprapubic pressure from the catheter and the stent but very tolerable. No hematuria. No leakage around the catheter. No chills. No malaise. No further nausea or vomiting. She tolerated her diet this morning Constitutional Vitals: Vital Signs Temp Pulse Resp BP Pulse Ox 97.7 F 74 20 156/97 96 04/09/20 08:01 04/09/20 08:01 04/09/20 08:01 04/09/20 08:01 04/09/20 08:01 Period Temp Pulse Resp BP Sys/Ellis Pulse Ox Last 24 Hr 97.7 F-102.3 F 60-106 15-26 99-156/53-97 91-100 Intake and Output 04/08/20 04/09/20 04/09/20 21:59 05:59 13:59 Intake Total 1600 710 980 Output Total 125 2100 900 Balance 1475 -1390 80 Weight 277 lb 1.6 oz Intake & Output: Intake & Output 04/08/20 04/09/20 04/09/20 21:59 05:59 13:59 Intake Total 1600 710 980 Output Total 125 2100 900 Balance 1475 -1390 80 Weight 277 lb 1.6 oz Intake: IV 1000 350 980 Sodium Chloride 0.9% 1,000 ml @ 980 100 mls/hr IV .Q10H [facility] Rx#: [id number] Lactated Ringers 1,000 ml @ 1000 Wide Open IV BOLUS ONE Rx#: [id number] Vancomycin 1,000 mg In Sodium 250 Chloride 0.9% 250 ml @ 250 mls/ hr IV ONCE ONE Rx#:[id number] Oral 360 IV - Manual Only 600 Output: Urine Catheter Amount 125 2100 900 Other: Meal snack (Jello) Feeding Ability Independent Urine Appearance Clear Clear Uretheral (Hickey) Cloudy Clear Urine Color [place] Bright Yellow Bright Yellow Uretheral (Hickey) Dark Yellow Pale Urine Odor Normal Uretheral (Hickey) Normal General appearance: cooperative and no acute distress; no disheveled Exam: She is no longer diaphoretic and is resting comfortably in bed Head Head exam: Present atraumatic and normocephalic Eye Eye exam: Present EOMI and normal appearance; Absent scleral icterus ENT ENT exam: Present mucous membranes moist Respiratory Respiratory exam: Absent accessory muscle use, respiratory distress, stridor and wheezes Cardiovascular Cardiovascular exam: Present normal rate and rhythm; Absent bradycardia and tachycardia GI/Abdominal GI/Abdominal exam: Present soft; Absent guarding and rebound Additional comments: Hickey catheter draining clear light yellow urine with 500 cc of urine in the bag Extremities Exam Extremities exam: Present normal capillary refill, pedal edema and Foot pink and warm Neurological Exam Neurological exam: Present alert and oriented X3; Absent altered and motor sensory deficit Psychiatric Psychiatric exam: Present normal affect and normal mood; Absent anxious Skin Skin exam: Absent cyanosis, erythema and pallor OBJ DATA Labs CBC & Chem 7: 04/09/20 04:28 04/09/20 04:28 Labs: Abnormal Lab Results 04/09/20 04/09/20 04/08/20 04:28 04:28 17:20 WBC MPV 12.0 H Gran % Lymph % (Auto) Gran # Lymph # (Auto) Seg Neutrophils % 90 H Lymphocytes % 7 L Sodium Carbon Dioxide 20 L Creatinine Glucose 159 H Calcium 8.4 L Albumin 3.1 L Urine Protein 30 A Urine Occult Blood 0.03 A Urine Urobilinogen 2.0 A Ur Leukocyte Esterase 75 A Urine RBC 6 H Urine WBC 43 H Ur Squamous Epith Cells 6 H 04/08/20 04/08/20 17:04 17:04 WBC 14.2 H MPV 11.4 H Gran % 91.2 H Lymph % (Auto) 5.1 L Gran # 12.93 H Lymph # (Auto) 0.73 L Seg Neutrophils % Lymphocytes % Sodium 130 L Carbon Dioxide 20 L Creatinine 1.4 H Glucose 137 H Calcium Albumin Urine Protein Urine Occult Blood Urine Urobilinogen Ur Leukocyte Esterase Urine RBC Urine WBC Ur Squamous Epith Cells Meds: Medications Acetaminophen (Tylenol) 650 mg PO Q4-6HP PRN; Protocol PRN Reason: Per Pain Protocol/Fever > 101 Bisacodyl (Dulcolax) 10 mg [place] Q2-3DAYS PRN PRN Reason: Constipation Docusate Sodium (Colace) 100 mg PO BID [place] Heparin Sodium (Porcine) (Heparin) 5,000 unit SQ Q12 [facility] Sodium Chloride (Sodium Chloride 0.9%) 1,000 mls @ 100 mls/hr IV .Q10H [facility] Acetaminophen (Ofirmev) 650 mg in 65 mls @ 130 mls/hr IV Q6HP PRN; Protocol PRN Reason: Per Pain Protocol/Fever > 101 Ceftriaxone Sodium 2 gm/ (Dextrose) 50 mls @ 100 mls/hr IV Q24H [facility]; Protocol Magnesium Sulfate (Magnesium Sulfate) 2 gm in 50 mls @ 50 mls/hr IV UD PRN PRN Reason: MG = or < 1.7 Vancomycin HCl 1,000 mg/ (Sodium Chloride) 250 mls @ 250 mls/hr IV Q12H [facility] Iron Carb/Multivit/[place]/Folic Acid (Multivitamin W/Minerals) 1 tab PO DAILY [facility] Melatonin (Melatonin 3mg Tablet) 3 mg PO HSP PRN PRN Reason: Insomnia Ondansetron HCl (Zofran Odt) 4 mg SL Q4-6HP PRN; Protocol PRN Reason: Nausea And Vomiting Ondansetron HCl (Zofran) 4 mg IV Q4-6HP PRN; Protocol PRN Reason: Nausea And Vomiting Polyethylene Glycol (Miralax) 17 gm PO DAILYP PRN PRN Reason: Constipation Potassium Chloride (Klor-Con) 40 meq PO DAILYP PRN PRN Reason: K+ < 3.5 Senna/Docusate Sodium (Senna Plus Tablet) 1 tab PO HS [facility] Sodium Chloride (Saline Flush) 10 ml IV Q8 [facility] Throat Lozenges (Cepacol) 1 lozenge PO PRN PRN PRN Reason: Sore Throat Vancomycin HCl (Vancomycin Per Pharmacy) 1 order IV UD [facility]; Protocol A/P Assessment and plan (1) Ureteral stone with hydronephrosis: Status: Acute Comment: -stent remain in place until infection addressed and then will plan for definitive stone management -pyridium can be used as needed for stent discomfort -Her definitive stone management will be as an outpatient (2) Sepsis: Status: Acute Comment: -She is much improved -Hickey removed -OOB and ambulate encouraged -Appreciate hospitalist management (3) Urinary tract infection: Status: Acute Comment: -she grew oligella Urethralis which has variable sensitivities -she is on broad spectrum antibiotics for now -ID consulted for oral agent Qualifiers: Urinary tract infection type: acute pyelonephritis Qualified Code(s): N10 - Acute pyelonephritis Time Spent With Patient Time: Total time spent is greater than 50% in coordination of care (as documented) at patient's floor/unit and/or counseling patient:25 minutes
[2020-04-09] MEDS: cefTRIAXone 2 GM in DEXTROSE 5% IN WATER 50 ML IV SCH (14:16)
[2020-04-09] MEDS ORDERED: CALCIUM CARBONATE 500 MG TAB.CHEW CHEWED PRN (17:45)
[2020-04-09] MEDS: VANCOMYCIN 1,000 MG in 0.9 % SODIUM CHLORIDE 250 ML IV SCH (20:31)
[2020-04-09] MEDS ORDERED: SENNOSIDES/DOCUSATE SODIUM 1 TAB TABLET PO SCH (21:00)
[2020-04-09] MEDS ORDERED: MELATONIN 3 MG TABLET PO PRN (21:00)
[2020-04-09] MEDS ORDERED: PANTOPRAZOLE 40 MG TABLET PO SCH (21:00)
[2020-04-10] MEDS: 0.9 % SODIUM CHLORIDE 1,000 ML IV SCH ×2 (04:58→08:36)
[2020-04-10] MEDS: 0.9 % SODIUM CHLORIDE 10 ML SYRINGE IV SCH (04:59)
[2020-04-10 07:03] LABS: Hemoglobin 11.1 g/dL (11.2-15.7); Mean Cell Volume 95.2 fL (80.0-100.0); Mean Corpuscular HGB Conc 32.6 g/dL (31.0-36.0); Mean Platelet Volume 11.9 fL (7.4-10.4); Platelet Count 153 K/mcL (140-440); RBC 3.57 M/mcL (3.59-5.38); Red Cell Distribution Width 13.2 % (11.5-14.5); WBC 10.2 K/mcL (4.50-11.00)
[2020-04-10 07:53] LABS: ALT/SGPT 13 U/l (0-40); AST/SGOT 12 U/l (0-37); Albumin 2.8 gm/dL (3.2-5.2); Alkaline Phosphatase 53 U/L (39-117); Bilirubin,Direct < 0.2 mg/dL (0.0-0.3); Bilirubin,Total < 0.2 mg/dL (0.0-1.0); Blood Urea Nitrogen 13 mg/dl (6-20); Calcium 8.6 mg/dl (8.6-10.4); Carbon Dioxide 21 mmol/L (22-30); Globulin 2.7 gm/dL (2.2-3.7); Glomerular Filtration Rate 76; Glucose 122 mg/dL (70-105); Lactate Dehydrogenase 180 U/L (94-250); Triglycerides 112 mg/dl (<150); Uric Acid 4.5 mg/dL (2.5-8.0)
[2020-04-10 07:55] LABS: Chloride 110 mmol/L (96-108); Phosphorous 1.6 mg/dL (2.7-4.5)
[2020-04-10] MEDS: DOCUSATE SODIUM 100 MG CAPSULE PO SCH (08:36)
[2020-04-10] MEDS: HEPARIN 5,000 UNIT/ML VIAL SQ SCH (08:36)
--- NOTE | 2020-04-10 08:36 | XRay Report ---
HISTORY: Flank pain, nausea and vomiting, evaluate for interval change FINDINGS: Lungs are clear. The heart, mediastinum, ijeoma and pleura are normal. There has been no significant change since 04/08/20. IMPRESSION: Normal exam Interpreted and Authenticated by: Carlos Awad 04/10/20
[2020-04-10] MEDS: cefTRIAXone 2 GM in DEXTROSE 5% IN WATER 50 ML IV SCH (08:37)
[2020-04-10 08:43] LABS: Band Neutrophils % 4 % (0-10); Lymphocytes % 16 % (15-49); Monocytes % (Manual) 3 % (1-12); Platelet Estimate NORMAL (NORMAL); RBC Morphology NORMAL (NORMAL); Segmented Neutrophils % 77 % (38-78)
[2020-04-10] MEDS ORDERED: MULTIVIT,THER IRON,CA,FA & MIN 1 TABLET PO SCH (09:00)
--- NOTE | 2020-04-10 09:44 | Discharge Summary ---
Discharge Provider Provider Patient information: Note initiated : 04/10/20 at 9:39 am Service Date, if different from initiated Date: [] Patient: Sheila Ohara a 45 y/o F admitted on 04/08/20 for flank pain, n/v. Chief Complaint: Discharge diagnosis * Nephrolithiasis with obstructive uropathy and hydronephrosis-status post stenting. Clinically resolved. * Sepsis secondary to obstructive uropathy-on antibiotic coverage. Clinically resolved. Repeat urine cultures ordered per ID. Discharging on Bactrim for 14 days. * Acute kidney injury secondary to obstructive uropathy-creatinine down from 1.4-0.9. Brief hospital course Ms. Ohara is a 45 year old F with a history of nephrolithiasis following up as outpatient with urology. Patient started experiencing increasing abdominal discomfort along with fever, nausea and hematuria and subsequently was evaluated in the ER. Patient was taken to surgery for hydronephrosis and obstructive uropathy along with placement of right ureteral stent. Hospital service was consulted for admission in light of sepsis/obstructive uropathy and [facility] At the time of my evaluation patient is immediately postop. She is doing well. Discomfort improved. Resting comfortably. Patient denies headache, photophobia, myalgias but endorses to chills and fever. She also endorses abdominal discomfort along with vaginal spasm likely associated with ureteric colic. 04/09-patient doing well. No overnight events. No concerns per staff. Transition out of unit. White count down to 11 from 14.2. Creatinine improved 1.1 from 1.4. Remains afebrile. Stable hemodynamics and vitals. No hematuria. Hickey is draining clear urine. Will likely discharge in 24 hours. Urine and blood cultures negative so far. Urine culture from 04/05 Oligella urethralis. Continue Rocephin/vancomycin 04/10-patient doing well. Post stenting day 2. Discharging on bactrim DS twice daily for 14 days as per ID recommendations. We will follow-up with urology as outpatient. Date of admission: 04/08/20 21:26 Discharge date: 04/10/20 Primary care physician: Tisha Ralph Consults: 04/08/20 18:35 Consult to Physician [CONS] Stat Comment: Consulting Provider: Yusuf Wesley Reason For Exam: Physician to Consult Discharge Meds Discharge Medications Home Medications IUD INTRAUTERINE 03/12/20 [History Confirmed 04/05/20 Last Taken Unknown] sulfamethoxazole-trimethoprim [Bactrim DS] 1 tab PO Q12H #28 tab 04/10/20 [Rx Last Taken Unknown] COURSE Hospital Course Hospital course: . Discharge diagnosis: . Time Spent with Patient Time attestation: Total time spent providing and/or coordinating discharge services: EXAM Constitutional Vitals: Temp Pulse Resp BP Pulse Ox 98.3 F 70 20 156/92 100 04/10/20 08:00 04/10/20 04:00 04/10/20 08:00 04/10/20 08:00 04/10/20 08:00 Discharge Data Data Completed and Pending Labs on day of discharge: Labs from last 24 hours 04/10/20 04/10/20 04/10/20 07:49 05:20 05:20 WBC 10.2 RBC 3.57 L Hgb 11.1 L Hct 34.0 L MCV 95.2 MCH 31.1 MCHC 32.6 RDW 13.2 Plt Count 153 MPV 11.9 H Total Counted 100 Seg Neutrophils % 77 Band Neutrophils % 4 Lymphocytes % 16 Monocytes % (Manual) 3 Platelet Estimate Normal RBC Morphology Normal Sodium 141 Potassium 3.7 Chloride 110 H Carbon Dioxide 21 L Anion Gap 10.0 BUN 13 Creatinine 0.9 GFR Calculation 76 Glucose 122 H Uric Acid 4.5 Calcium 8.6 Phosphorus 1.6 L Magnesium 1.9 Total Bilirubin < 0.2 Direct Bilirubin < 0.2 GGT 9 AST 12 ALT 13 Alkaline Phosphatase 53 Lactate Dehydrogenase 180 Total Protein 5.5 L Albumin 2.8 L Globulin 2.7 Albumin/Globulin Ratio 1.0 Triglycerides 112 Vancomycin Trough 7.6 Preliminary micro results at discharge 04/08/20 17:38 Blood Culture - Preliminary Blood 04/08/20 17:28 Blood Culture - Preliminary Blood 04/08/20 17:20 Urine Culture - Preliminary Urine - Clean Void Mid-Stream Discharge Plan Patient/Caregiver Discharge Instructions Activity: increase activity as tolerated Diet: Regular Diet Instructions: Acute Kidney Injury (GEN), Sepsis (GEN), Ureteroscopy (GEN) Activity Restrictions/Additional Instructions: Follow-up PCP in 5 to 7 days Please fax copy of repeat urine culture to urology office Dr. Wesley urology Bactrim DS for 14 days Return to ER if worsening abdominal pain, bloody urine nausea vomiting noted This discharge packet is provided to you to help keep you informed about your care. We want to ensure you get everything you need when you go home. You will also be receiving a call from us in a few days to follow up with you and see how you are doing since your discharge. This gives us a chance to listen to any concerns you maybe experiencing since you were discharged or any additional needs you may have, as well as providing us feedback on your care experience. We strive to always provide excellent care and thank you for your feedback and for choosing [facility]. Stand Alone Forms: Work/Release Restrictions Prescriptions: New sulfamethoxazole-trimethoprim [Bactrim DS] 800-160 mg tablet 1 tab PO Q12H Qty: 28 RF: 0 No Action IUD intrauterine RF: 0 Follow Up Plan Follow up with: Yusuf Wesley MD [Physician] - Tisha Ralph ARNP [Primary Care Provider] - (Patient requests to schedule this appointment herself.) Patient Disposition: Home, Self-Care Rehab Potential: Fair I certify that the patient requires SNF services: No Overall status at discharge: patient is back to baseline Discharge Orders: Discharge Order (Routine); Ordered 04/10/20 Ordered By: Americo Davenport
[2020-04-10] MEDS: VANCOMYCIN 1,000 MG in 0.9 % SODIUM CHLORIDE 250 ML IV SCH (09:58)
[2020-04-10] MEDS ORDERED: FLU VACC QS2020-21(6MOS UP)/PF 60 MCG/0.5 ML SYRINGE IM ONE (10:00)
[2020-04-10] MEDS ORDERED: VANCOMYCIN 1,500 MG in 0.9 % SODIUM CHLORIDE 500 ML IV ONE (10:00)
== END 2020-04-10 12:40 | disposition home or self-care (01) | DRG 854 ==
LOC: ED 16:50 → SUR 19:23 → ICU 21:26
PROVIDERS: ADMIT Internal Medicine; ATTEND Internal Medicine

== ENCOUNTER 2023-05-18 10:55 | Inpatient (IN) ==
[2023-05-18] MEDS ORDERED: 0.9 % SODIUM CHLORIDE 1,000 ML IV ONE (11:22)
[2023-05-18] MEDS ORDERED: ONDANSETRON 4 MG/2 ML VIAL IV ONE (11:22)
[2023-05-18] MEDS ORDERED: KETOROLAC 30 MG/ML VIAL IV ONE (11:22)
[2023-05-18] MEDS ORDERED: morphine 4 MG/ML VIAL IV ONE (11:22)
[2023-05-18] MEDS ORDERED: HYDROmorphone 1 MG/ML SYRINGE IV ONE (12:21)
[2023-05-18 12:30] LABS: Eosinophils % (Auto) 2.9 % (0.0-7.0); Hematocrit 41.9 % (34.1-44.9); Hemoglobin 14.1 g/dL (11.2-15.7); Mean Cell Volume 89.5 fL (80.0-100.0); Mean Corpuscular HGB Conc 33.7 g/dL (31.0-36.0); Mean Platelet Volume 11.2 fL (8.8-12.5); Monocytes % (Auto) 4.9 % (1.0-12.0); Neutrophils % (Auto) 66.4 % (38.0-78.0); Platelet Count 225 K/mcL (140-440); RBC 4.68 M/mcL (3.59-5.38); Red Cell Distribution Width 12.4 % (11.5-14.5); WBC 10.4 K/mcL (4.5-11.0)
[2023-05-18 12:31] LABS: Basophils # (Auto) 0.04 K/mcL (0.00-0.30); Basophils % (Auto) 0.4 % (0.0-2.0); Lymphocytes # (Auto) 2.61 K/mcL (1.50-4.80); Monocytes # (Auto) 0.51 K/mcL (0.10-0.90)
[2023-05-18 12:47] LABS: ALT/SGPT 20 U/L (<40); AST/SGOT 16 U/L (<32); Albumin 4.2 gm/dL (3.2-5.2); Albumin/Globulin Ratio 1.3 (1.0-2.3); Alkaline Phosphatase 72 U/L (39-117); Bilirubin,Total 0.5 mg/dL (0.1-1.0); Blood Urea Nitrogen 22 mg/dL (6-20); Calcium 10.4 mg/dL (8.6-10.4); Carbon Dioxide 22 mmol/L (22-30); Chloride 103 mmol/L (96-108); Globulin 3.3 gm/dL (2.2-3.7); Glomerular Filtration Rate 65; Glucose 116 mg/dL (70-105)
[2023-05-18] MEDS ORDERED: ACETAMINOPHEN 1,000 MG/100 ML BAG IV ONE (14:01)
[2023-05-18] MEDS ORDERED: KETAMINE 50 MG/ML Syringe IV ONE (16:09)
[2023-05-18] MEDS ORDERED: ONDANSETRON 4 MG/2 ML VIAL ONE (16:10)
[2023-05-18] MEDS ORDERED: LIDOCAINE 2% PF 5 ML VIAL ONE (16:10)
[2023-05-18] MEDS ORDERED: PROPOFOL 200 MG/20 ML VIAL IV ONE (16:10)
[2023-05-18] MEDS ORDERED: DEXAMETHASONE 10 MG/ML VIAL ONE (16:10)
[2023-05-18] MEDS ORDERED: MAGNESIUM SULFATE 2 GM/50 ML BAG IV ONE (16:10)
[2023-05-18] MEDS ORDERED: IOPAMIDOL 100 ML BOTTLE IV ONE (16:21)
[2023-05-18] MEDS ORDERED: IOVERSOL 20 ML VIAL IV ONE (16:30)
[2023-05-18] MEDS ORDERED: LIDOCAINE 2% URO-JET 10 ML JEL.PF.APP UR ONE (16:30)
[2023-05-18] MEDS ORDERED: ceFAZolin 3 GM in DEXTROSE 5% IN WATER 50 ML IV SCH (16:45)
[2023-05-18] MEDS ORDERED: fentaNYL 100 MCG/2 ML VIAL IV ONE (16:56)
[2023-05-18] MEDS ORDERED: IPRATROPIUM/ALBUTEROL 3 ML AMPUL.NEB NEB PRN (17:10)
[2023-05-18] MEDS ORDERED: LACTATED RINGERS 250 ML IV PRN (17:10)
[2023-05-18] MEDS ORDERED: MEPERIDINE 25 MG/ML VIAL IV PRN (17:10)
[2023-05-18] MEDS ORDERED: fentaNYL 100 MCG/2 ML VIAL IV PRN (17:10)
[2023-05-18] MEDS ORDERED: diphenhydrAMINE 50 MG/ML VIAL IV PRN (17:10)
[2023-05-18] MEDS ORDERED: HYDROmorphone 0.5 MG/0.5 ML SYRINGE IV PRN (17:10)
[2023-05-18] MEDS ORDERED: NALOXONE HCL 0.4 MG/ML VIAL IV PRN (17:10)
[2023-05-18] MEDS ORDERED: PROMETHAZINE 25 MG/ML VIAL IV PRN (17:10)
[2023-05-18] MEDS ORDERED: ONDANSETRON 4 MG/2 ML VIAL IV PRN (17:10)
[2023-05-18] MEDS ORDERED: LACTATED RINGERS 1,000 ML IV SCH (17:15)
[2023-05-18] MEDS ORDERED: MAGNESIUM HYDROXIDE 30 ML ORAL.SUSP PO PRN (17:25)
[2023-05-18] MEDS ORDERED: BISACODYL 10 MG SUPP.RECT PR PRN (17:25)
[2023-05-18] MEDS ORDERED: LORazepam 2 MG/ML VIAL IV ONE ×2 (17:46→18:07)
[2023-05-18] MEDS ORDERED: LORazepam 2 MG/ML VIAL ONE (18:16)
[2023-05-18] MEDS: KETOROLAC 15 MG/ML VIAL IV PRN (18:57)
[2023-05-18] MEDS: DEXTROSE 5%-NS 1,000 ML IV SCH (18:57)
[2023-05-18] MEDS: HYDROmorphone 1 MG/ML SYRINGE IV PRN (18:58)
[2023-05-18] MEDS: 0.9 % SODIUM CHLORIDE 10 ML SYRINGE IV SCH ×2 (18:58→20:15)
[2023-05-18 20:42] LABS: Appearance,Urine HAZY (Clear); Bacteria,Urine FEW /hpf (0); Bilirubin,Urine Negative (Negative); Color,Urine STRAW; Culture Indicated,Urine Yes; Glucose,Urine (UA) Negative (Negative); Ketones,Urine Negative (Negative); Leukocyte Esterase,Urine 500 /uL (Negative); Nitrate,Urine Negative (Negative); Protein,Urine Negative (Negative); Specific Gravity,Urine 1.006 (1.000-1.035); Urine Blood >=1.0 mg/dL (Negative); Urine RBC 104 /hpf (0-3); Urine Squamous Epithelial Cell 0 /hpf (0-4); Urine WBC 145 /hpf (0-4); Urobilinogen,Urine Negative
[2023-05-18] MEDS: ONDANSETRON 4 MG/2 ML VIAL IV PRN (21:12)
[2023-05-19] MEDS: 0.9 % SODIUM CHLORIDE 10 ML SYRINGE IV SCH ×3 (04:47→20:08)
[2023-05-19 06:53] LABS: Hematocrit 39.8 % (34.1-44.9); Hemoglobin 12.8 g/dL (11.2-15.7); Mean Corpuscular HGB Conc 32.2 g/dL (31.0-36.0); Mean Platelet Volume 11.3 fL (8.8-12.5); Platelet Count 206 K/mcL (140-440); RBC 4.28 M/mcL (3.59-5.38); Red Cell Distribution Width 12.7 % (11.5-14.5); WBC 22.1 K/mcL (4.5-11.0)
[2023-05-19] MEDS ORDERED: SULFAMETHOXAZOLE/TRIMETHOPRIM 1 TABLET PO ONE (07:14)
[2023-05-19] MEDS: HYDROcodone/APAP 5/325MG TABLET PO PRN ×2 (07:33→13:53)
[2023-05-19] MEDS: KETOROLAC 15 MG/ML VIAL IV PRN (07:34)
[2023-05-19] MEDS: DEXTROSE 5%-NS 1,000 ML IV SCH (13:33)
[2023-05-19] MEDS: HYDROmorphone 1 MG/ML SYRINGE IV PRN (13:56)
[2023-05-19] MEDS: ONDANSETRON 4 MG/2 ML VIAL IV PRN ×2 (14:02→20:07)
[2023-05-19] MEDS ORDERED: IPRATROPIUM/ALBUTEROL 3 ML AMPUL.NEB NEB PRN (16:38)
[2023-05-19] MEDS ORDERED: NALOXONE HCL 0.4 MG/ML VIAL IV ONE (16:43)
[2023-05-19] MEDS ORDERED: 0.9 % SODIUM CHLORIDE 1,000 ML IV SCH (16:45)
[2023-05-19] MEDS ORDERED: FUROSEMIDE 20 MG/2 ML VIAL IV ONE ×3 (16:48→17:10)
[2023-05-19] MEDS ORDERED: methylPREDNISolone SOD SUCC 125 MG/2 ML VIAL IV ONE (17:15)
[2023-05-19 17:25] LABS: Basophils # (Auto) 0.05 K/mcL (0.00-0.30); Basophils % (Auto) 0.2 % (0.0-2.0); Eosinophils # (Auto) 0 K/mcL (0.00-0.70); Eosinophils % (Auto) 0 % (0.0-7.0); Hemoglobin 13.4 g/dL (11.2-15.7); Lymphocytes # (Auto) 2.35 K/mcL (1.50-4.80); Lymphocytes % (Auto) 9.5 % (15.5-49.0); Mean Cell Volume 93.2 fL (80.0-100.0); Mean Corpuscular HGB Conc 32.7 g/dL (31.0-36.0); Mean Platelet Volume 11.4 fL (8.8-12.5); Monocytes # (Auto) 1.13 K/mcL (0.10-0.90); Monocytes % (Auto) 4.6 % (1.0-12.0); Neutrophils % (Auto) 84.7 % (38.0-78.0); Platelet Count 214 K/mcL (140-440); Red Cell Distribution Width 12.8 % (11.5-14.5); WBC 24.7 K/mcL (4.5-11.0)
[2023-05-19] MEDS: FAMOTIDINE/PF 20 MG/2 ML VIAL IV SCH ×2 (17:31→20:07)
[2023-05-19 17:53] LABS: ALT/SGPT 14 U/L (<40); AST/SGOT 17 U/L (<32); Albumin 3.6 gm/dL (3.2-5.2); Albumin/Globulin Ratio 1.1 (1.0-2.3); Alkaline Phosphatase 68 U/L (39-117); Bilirubin,Total 0.3 mg/dL (0.1-1.0); Blood Urea Nitrogen 15 mg/dL (6-20); Carbon Dioxide 23 mmol/L (22-30); Chloride 104 mmol/L (96-108); Globulin 3.3 gm/dL (2.2-3.7); Glomerular Filtration Rate 86; Glucose 113 mg/dL (70-105)
[2023-05-19] MEDS ORDERED: morphine 2 MG/ML VIAL IV PRN (18:44)
[2023-05-19] MEDS ORDERED: SULFAMETHOXAZOLE/TRIMETHOPRIM 1 TABLET PO SCH (19:00)
[2023-05-19] MEDS: PIPERACILLIN SODIUM/TAZOBACTAM 3.375 GM in DEXTROSE 5% IN WATER 50 ML IV SCH (20:07)
[2023-05-19] MEDS: ACETAMINOPHEN 325 MG TABLET PO PRN (20:45)
[2023-05-20] MEDS: PIPERACILLIN SODIUM/TAZOBACTAM 3.375 GM in DEXTROSE 5% IN WATER 50 ML IV SCH ×3 (00:22→12:37)
[2023-05-20] MEDS: ACETAMINOPHEN 325 MG TABLET PO PRN ×2 (04:20→08:47)
[2023-05-20] MEDS: 0.9 % SODIUM CHLORIDE 10 ML SYRINGE IV SCH (05:20)
[2023-05-20 06:05] LABS: Basophils # (Auto) 0.02 K/mcL (0.00-0.30); Basophils % (Auto) 0.1 % (0.0-2.0); Eosinophils # (Auto) 0 K/mcL (0.00-0.70); Eosinophils % (Auto) 0 % (0.0-7.0); Hematocrit 39.4 % (34.1-44.9); Hemoglobin 12.8 g/dL (11.2-15.7); Lymphocytes # (Auto) 1.52 K/mcL (1.50-4.80); Mean Cell Volume 93.4 fL (80.0-100.0); Mean Corpuscular HGB Conc 32.5 g/dL (31.0-36.0); Mean Platelet Volume 11.1 fL (8.8-12.5); Monocytes # (Auto) 0.31 K/mcL (0.10-0.90); Monocytes % (Auto) 1.8 % (1.0-12.0); Neutrophils % (Auto) 88.1 % (38.0-78.0); Platelet Count 218 K/mcL (140-440); RBC 4.22 M/mcL (3.59-5.38); Red Cell Distribution Width 12.8 % (11.5-14.5); WBC 16.8 K/mcL (4.5-11.0)
[2023-05-20] MEDS: FAMOTIDINE/PF 20 MG/2 ML VIAL IV SCH (08:43)
[2023-05-20 09:27] LABS: ALT/SGPT 12 U/L (<40); AST/SGOT 12 U/L (<32); Albumin 3.3 gm/dL (3.2-5.2); Albumin/Globulin Ratio 1.1 (1.0-2.3); Alkaline Phosphatase 65 U/L (39-117); Bilirubin,Direct < 0.2 mg/dL (0-0.3); Bilirubin,Total 0.2 mg/dL (0.1-1.0); Blood Urea Nitrogen 15 mg/dL (6-20); Calcium 8.8 mg/dL (8.6-10.4); Carbon Dioxide 25 mmol/L (22-30); Chloride 100 mmol/L (96-108); Globulin 3.1 gm/dL (2.2-3.7); Glomerular Filtration Rate 86; Glucose 156 mg/dL (70-105); Lactate Dehydrogenase 187 U/L (135-225); Phosphorous 3.2 mg/dL (2.5-4.5); Triglycerides 79 mg/dL (<150); Uric Acid 3.7 mg/dL (2.5-8.0)
[2023-05-20] MEDS ORDERED: FUROSEMIDE 20 MG/2 ML VIAL IV SCH ×2 (10:51→11:03)
== END 2023-05-20 14:20 | disposition home or self-care (01) | DRG 853 ==
LOC: ED 10:55 → SUR 16:20 → MEDSUR 18:32 → ICU 05-19 18:10
PROVIDERS: ADMIT Urology; ATTEND Internal Medicine

== ENCOUNTER 2023-06-10 10:55 | Inpatient (IN) ==
[~2023-06-10 10:55] MED LIST: GLYCOPYRROLATE 0.2 MG/ML VIAL IV ONE
[2023-06-10] MEDS ORDERED: IOPAMIDOL 100 ML BOTTLE IV ONE (10:56)
[2023-06-10 11:47] LABS: POC Calcium, Ionized 1.23 (1.16-1.32); POC Creatinine 1.2 (0.6-1.2); POC Potassium 3.9 (3.3-5.1)
[2023-06-10] MEDS ORDERED: 0.9 % SODIUM CHLORIDE 1,000 ML IV ONE (11:51)
[2023-06-10 12:30] LABS: Basophils # (Auto) 0.03 K/mcL (0.00-0.30); Basophils % (Auto) 0.4 % (0.0-2.0); Eosinophils # (Auto) 0.29 K/mcL (0.00-0.70); Eosinophils % (Auto) 3.5 % (0.0-7.0); Hematocrit 39.3 % (34.1-44.9); Hemoglobin 12.9 g/dL (11.2-15.7); Lymphocytes # (Auto) 2.44 K/mcL (1.50-4.80); Lymphocytes % (Auto) 29.5 % (15.5-49.0); Mean Cell Volume 90.3 fL (80.0-100.0); Mean Corpuscular HGB Conc 32.8 g/dL (31.0-36.0); Mean Platelet Volume 11.1 fL (8.8-12.5); Monocytes # (Auto) 0.42 K/mcL (0.10-0.90); Monocytes % (Auto) 5.1 % (1.0-12.0); Neutrophils % (Auto) 61.3 % (38.0-78.0); Platelet Count 221 K/mcL (140-440); RBC 4.35 M/mcL (3.59-5.38); Red Cell Distribution Width 12.5 % (11.5-14.5); WBC 8.3 K/mcL (4.5-11.0)
[2023-06-10 13:13] LABS: Appearance,Urine CLOUDY (Clear); Bacteria,Urine MOD /hpf (0); Bilirubin,Urine Negative (Negative); Color,Urine YELLOW; Culture Indicated,Urine Yes; Glucose,Urine (UA) Negative (Negative); Ketones,Urine Negative (Negative); Leukocyte Esterase,Urine 500 /uL (Negative); Mucus,Urine MANY /hpf; Nitrate,Urine Negative (Negative); Protein,Urine 100 mg/dL (Negative); Specific Gravity,Urine 1.023 (1.000-1.035); Urine Blood >=1.0 mg/dL (Negative); Urine Granular Cast 11 /lph (0-0); Urine RBC > 182 /hpf (0-1); Urine Squamous Epithelial Cell 1 /hpf (0-4); Urine Transitional Epi Cells 4 /hpf (0-2); Urine WBC > 182 /hpf (0-4); Urobilinogen,Urine Negative
[2023-06-10] MEDS ORDERED: cefTRIAXone 2 GM in DEXTROSE 5% IN WATER 50 ML IV ONE (13:24)
[2023-06-10] MEDS ORDERED: ALBUTEROL SULFATE 60 PUFF INHALER INH PRN (15:05)
[2023-06-10] MEDS ORDERED: KETOROLAC 30 MG/ML VIAL IV ONE (15:38)
[2023-06-10] MEDS ORDERED: traZODone HCL 50 MG TABLET PO PRN (16:56)
[2023-06-10] MEDS ORDERED: IPRATROPIUM/ALBUTEROL 3 ML AMPUL.NEB NEB PRN (16:56)
[2023-06-10] MEDS ORDERED: hydrALAZINE 20 MG/ML VIAL IV PRN (16:56)
[2023-06-10] MEDS ORDERED: ACETAMINOPHEN 325 MG TABLET PO PRN (16:56)
[2023-06-10] MEDS ORDERED: morphine 4 MG/ML VIAL IV PRN (16:56)
[2023-06-10] MEDS: 0.9 % SODIUM CHLORIDE 1,000 ML IV SCH (17:15)
[2023-06-10] MEDS: SENNOSIDES 1 TABLET PO SCH (20:20)
[2023-06-10] MEDS: 0.9 % SODIUM CHLORIDE 10 ML SYRINGE IV SCH (20:20)
[2023-06-10] MEDS: DOCUSATE SODIUM 100 MG CAPSULE PO SCH (20:20)
[2023-06-10] MEDS: TAMSULOSIN 0.4 MG CAPSULE PO SCH (20:22)
[2023-06-10] MEDS: oxyCODONE IR 5 MG TABLET PO PRN (21:08)
[2023-06-11] MEDS: KETOROLAC 30 MG/ML VIAL IV PRN ×3 (00:49→20:08)
[2023-06-11] MEDS: oxyCODONE IR 5 MG TABLET PO PRN ×2 (01:08→06:16)
[2023-06-11] MEDS: 0.9 % SODIUM CHLORIDE 1,000 ML IV SCH ×2 (03:16→14:07)
[2023-06-11] MEDS: 0.9 % SODIUM CHLORIDE 10 ML SYRINGE IV SCH ×3 (05:46→20:47)
[2023-06-11] MEDS: ONDANSETRON 4 MG/2 ML VIAL IV PRN ×3 (05:49→20:08)
[2023-06-11 06:59] LABS: Basophils # (Auto) 0.02 K/mcL (0.00-0.30); Basophils % (Auto) 0.2 % (0.0-2.0); Eosinophils # (Auto) 0.35 K/mcL (0.00-0.70); Eosinophils % (Auto) 4.3 % (0.0-7.0); Hematocrit 34.4 % (34.1-44.9); Lymphocytes # (Auto) 2.42 K/mcL (1.50-4.80); Lymphocytes % (Auto) 29.9 % (15.5-49.0); Mean Cell Volume 94.2 fL (80.0-100.0); Monocytes % (Auto) 7.4 % (1.0-12.0); Platelet Count 185 K/mcL (140-440); RBC 3.65 M/mcL (3.59-5.38); Red Cell Distribution Width 12.9 % (11.5-14.5); WBC 8.1 K/mcL (4.5-11.0)
[2023-06-11 07:54] LABS: ALT/SGPT 15 U/L (<40); AST/SGOT 12 U/L (<32); Albumin 3.4 gm/dL (3.2-5.2); Albumin/Globulin Ratio 1.5 (1.0-2.3); Alkaline Phosphatase 61 U/L (39-117); Bilirubin,Total 0.2 mg/dL (0.1-1.0); Blood Urea Nitrogen 25 mg/dL (6-20); Calcium 8.5 mg/dL (8.6-10.4); Carbon Dioxide 22 mmol/L (22-30); Chloride 108 mmol/L (96-108); Globulin 2.3 gm/dL (2.2-3.7); Glomerular Filtration Rate 86; Glucose 102 mg/dL (70-105)
[2023-06-11] MEDS: cefTRIAXone 1 GM VIAL IV SCH (09:13)
[2023-06-11] MEDS: LISINOPRIL 10 MG TABLET PO SCH (09:13)
[2023-06-11] MEDS: DOCUSATE SODIUM 100 MG CAPSULE PO SCH ×2 (09:49→20:47)
[2023-06-11] MEDS ORDERED: METOCLOPRAMIDE 10 MG/2 ML VIAL IV PRN (09:54)
[2023-06-11] MEDS ORDERED: IPRATROPIUM/ALBUTEROL 3 ML AMPUL.NEB NEB PRN (17:01)
[2023-06-11] MEDS ORDERED: ONDANSETRON 4 MG/2 ML VIAL IV PRN (17:01)
[2023-06-11] MEDS ORDERED: MEPERIDINE 25 MG/ML VIAL IV PRN (17:01)
[2023-06-11] MEDS ORDERED: fentaNYL 100 MCG/2 ML VIAL IV PRN (17:01)
[2023-06-11] MEDS ORDERED: LACTATED RINGERS 1,000 ML IV SCH (17:15)
[2023-06-11] MEDS ORDERED: LIDOCAINE 2% PF 5 ML VIAL ONE (17:30)
[2023-06-11] MEDS ORDERED: PROPOFOL 200 MG/20 ML VIAL IV ONE (17:30)
[2023-06-11] MEDS ORDERED: DEXAMETHASONE 10 MG/ML VIAL ONE (17:30)
[2023-06-11] MEDS ORDERED: ONDANSETRON 4 MG/2 ML VIAL ONE (17:31)
[2023-06-11] MEDS ORDERED: SUGAMMADEX SODIUM 200 MG/2 ML VIAL IV ONE (17:31)
[2023-06-11] MEDS ORDERED: MIDAZOLAM 2 MG/2 ML VIAL ONE (17:43)
[2023-06-11] MEDS ORDERED: fentaNYL 100 MCG/2 ML VIAL IV ONE (17:43)
[2023-06-11] MEDS ORDERED: ROCURONIUM 10 MG/ML ML IV ONE (17:53)
[2023-06-11] MEDS: IOVERSOL 20 ML VIAL IV ONE ×2 (18:53→20:46)
[2023-06-11] MEDS: LIDOCAINE 2% URO-JET 10 ML JEL.PF.APP UR ONE ×2 (18:53→20:46)
[2023-06-11] MEDS: SENNOSIDES 1 TABLET PO SCH (20:47)
[2023-06-11] MEDS: TAMSULOSIN 0.4 MG CAPSULE PO SCH (21:15)
[2023-06-11] MEDS ORDERED: 0.9 % SODIUM CHLORIDE 10 ML SYRINGE IV SCH (22:00)
[2023-06-12] MEDS: 0.9 % SODIUM CHLORIDE 1,000 ML IV SCH ×2 (01:17→03:42)
[2023-06-12] MEDS: 0.9 % SODIUM CHLORIDE 10 ML SYRINGE IV SCH (04:31)
[2023-06-12] MEDS: KETOROLAC 30 MG/ML VIAL IV PRN (06:00)
[2023-06-12] MEDS: ONDANSETRON 4 MG/2 ML VIAL IV PRN (06:00)
[2023-06-12 07:28] LABS: ALT/SGPT 17 U/L (<40); AST/SGOT 15 U/L (<32); Albumin 3.6 gm/dL (3.2-5.2); Albumin/Globulin Ratio 1.3 (1.0-2.3); Alkaline Phosphatase 67 U/L (39-117); Bilirubin,Total 0.2 mg/dL (0.1-1.0); Blood Urea Nitrogen 21 mg/dL (6-20); Calcium 8.9 mg/dL (8.6-10.4); Carbon Dioxide 21 mmol/L (22-30); Chloride 107 mmol/L (96-108); Globulin 2.7 gm/dL (2.2-3.7); Glomerular Filtration Rate 86; Glucose 142 mg/dL (70-105)
[2023-06-12 08:01] LABS: Basophils # (Auto) 0 K/mcL (0.00-0.30); Basophils % (Auto) 0 % (0.0-2.0); Eosinophils # (Auto) 0 K/mcL (0.00-0.70); Eosinophils % (Auto) 0 % (0.0-7.0); Hemoglobin 12.5 g/dL (11.2-15.7); Lymphocytes # (Auto) 1.26 K/mcL (1.50-4.80); Lymphocytes % (Auto) 14.8 % (15.5-49.0); Mean Cell Volume 93.8 fL (80.0-100.0); Mean Corpuscular HGB Conc 32.1 g/dL (31.0-36.0); Mean Platelet Volume 11.4 fL (8.8-12.5); Monocytes # (Auto) 0.15 K/mcL (0.10-0.90); Monocytes % (Auto) 1.8 % (1.0-12.0); Neutrophils % (Auto) 82.8 % (38.0-78.0); Platelet Count 225 K/mcL (140-440); RBC 4.16 M/mcL (3.59-5.38); Red Cell Distribution Width 12.9 % (11.5-14.5); WBC 8.5 K/mcL (4.5-11.0)
[2023-06-12] MEDS: LISINOPRIL 10 MG TABLET PO SCH (08:58)
[2023-06-12] MEDS: DOCUSATE SODIUM 100 MG CAPSULE PO SCH (08:59)
[2023-06-12] MEDS: cefTRIAXone 1 GM VIAL IV SCH (10:21)
== END 2023-06-12 14:40 | disposition home or self-care (01) | DRG 660 ==
LOC: ED 10:55 → MEDSUR 16:52
PROVIDERS: ADMIT Internal Medicine; ATTEND Internal Medicine